=== PATIENT | male | born 1980 | race African-American/Black ===

== ENCOUNTER 2017-08-24 08:57 | Emergency (ER) | payer SELFPAY ==
[~2017-08-24] VITALS: Ht 182.9 cm; Wt 90.0 kg
[2017-08-24 08:59] VITALS: BP 140/110; PULSE 75; RESP 18; TEMP 98.4; O2SAT 97
[2017-08-24] MEDS ORDERED: KETOROLAC TROMETHAMINE 60 MG/2 ML (IM) VIAL IM ONE (09:30)
[2017-08-24] MEDS ORDERED: ORPHENADRINE INJ 60 MG/2 ML AMP IM ONE (09:30)
[2017-08-24] MEDS ORDERED: TRAM50 PO (09:49)
[2017-08-24] MEDS ORDERED: CIPR-9 PO (09:49)
--- NOTE | 2017-08-24 09:49 | PD ---
HPI Chief Complaint: Back/ Neck Pain or Injury Time Seen by Provider: 09:12 Travel History International Travel<30 days: No Contact w/Intl Traveler<30days: No Traveled to known affect area: No History of Present Illness HPI over last 3 days h/o cough, prod of yellow to greenish sputum, and now have back pain (points to bilateral flank areas ) with coughing and moving. sharp and resolves with rest and slow movement, but worsens with cough and moving. denies fever/n/v/d/abd pain/hematuria/ PFSH Social History Tobacco Use: Yes Allergies-Medications (Allergen,Severity, Reaction): Coded Allergies: No Known Allergies (Unverified , 08/24/17) Reported Meds & Prescriptions Reported Meds & Active Scripts Active Ultram (Tramadol HCl) 50 Mg Tab 50 Mg PO Q4H PRN Cipro (Ciprofloxacin HCl) 500 Mg Tab 500 Mg PO BID Review of Systems Except as stated in HPI: all other systems reviewed are Neg General / Constitutional: No: Fever Eyes: No: Visual changes HENT: No: Headaches Cardiovascular: No: Chest Pain or Discomfort Respiratory: Positive: Cough Gastrointestinal: No: Abdominal Pain Genitourinary: No: Dysuria Musculoskeletal: No: Pain Skin: No Rash Neurologic: No: Weakness Psychiatric: No: Depression Endocrine: No: Polydipsia Hematologic/Lymphatic: No: Easy Bruising Physical Exam Narrative GENERAL: SKIN: Warm and dry. HEAD: Atraumatic. Normocephalic. EYES: Pupils equal and round. No scleral icterus. No injection or drainage. ENT: No nasal bleeding or discharge. Mucous membranes pink and moist. NECK: Trachea midline. No JVD. CARDIOVASCULAR: Regular rate and rhythm. RESPIRATORY: No accessory muscle use. good tidal volume sree, no wheezing, but crackles at base of LLL GASTROINTESTINAL: Abdomen soft, non-tender, nondistended. Hepatic and splenic margins not palpable. MUSCULOSKELETAL: Extremities without clubbing, cyanosis, or edema. No obvious deformities. NEUROLOGICAL: Awake and alert. No obvious cranial nerve deficits. Motor grossly within normal limits. Five out of 5 muscle strength in the arms and legs. Normal speech. PSYCHIATRIC: Appropriate mood and affect; insight and judgment normal. Data Data Last Documented VS Vital Signs Date Time Temp Pulse Resp B/P (MAP) Pulse Ox O2 Delivery O2 Flow Rate FiO2 08/24/17 12:13 67 18 144/98 (113) 100 08/24/17 08:59 98.4 Orders Orders Orphenadrine Inj (Norflex Inj) (08/24/17 09:30) Ketorolac Inj (Toradol Inj) (08/24/17 09:30) Chest, Pa & Lat (08/24/17 09:24) Ed Discharge Order (08/24/17 10:55) MDM Medical Decision Making Medical Screen Exam Complete: Yes Emergency Medical Condition: Yes Medical Record Reviewed: Yes Differential Diagnosis bronchitis v pna v musculoskeletal/chest wall pain Narrative Course no hypoxemia, afevrile currently and will d/c home on empiric abx Diagnosis Primary Impression: early pneumonia Patient Instructions: Community Acquired Pneumonia (DC), General Instructions Scripts Tramadol (Ultram) 50 Mg Tab 50 MG PO Q4H Y for PAIN, #15 TAB 0 Refills Prov: Rufus Henry MD 08/24/17 Ciprofloxacin (Cipro) 500 Mg Tab 500 MG PO BID for Infection, #14 TAB 0 Refills Prov: Rufus Henry MD 08/24/17 Disposition: 01 DISCHARGE HOME Condition: Stable Rufus Henry MD Aug 24, 2017 09:49
--- NOTE | 2017-08-24 10:00 | RADRPT ---
EXAM DATE/TIME: 08/24/2017 09:48 [facility] COMPARISON: No previous studies available for comparison. INDICATIONS : Patient states cough. MEDICAL HISTORY : None. SURGICAL HISTORY : None. ENCOUNTER: Initial ACUITY: 3 days PAIN SCORE: 0/10 LOCATION: Bilateral chest FINDINGS: PA and lateral views of the chest demonstrate the lungs to be symmetrically aerated without evidence of mass, infiltrate or effusion. The cardiomediastinal contours are unremarkable. Osseous structure s are intact. CONCLUSION: Normal examination. José Garcia Jr., MD on August 24, 2017 at 9:58 Board Certified Radiologist. This report was verified electronically.
[2017-08-24 12:13] VITALS: BP 144/98
== END 2017-08-24 12:17 | disposition home or self-care (01) ==
LOC: NEPD 08:57
DX: J18.9 Pneumonia, unspecified organism (principal)
CPT/HCPCS: 71020; 96372; 99284; J1885; J2360